=== PATIENT | female | born 1980 | race Caucasian/White ===

== ENCOUNTER 2018-05-25 18:49 | Emergency (ER) | payer MEDICAID ==
[~2018-05-25] VITALS: Ht 152.4 cm; Wt 73.0 kg
[2018-05-25 19:12] VITALS: Ht 152.4 cm; Wt 73.0 kg
[2018-05-25 22:44] VITALS: BP 120/71
== END 2018-05-25 22:44 | disposition home or self-care (01) ==
LOC: ED 18:49
DX: R51 Headache (principal); R11.2 Nausea with vomiting, unspecified; Z90.49 Acquired absence of other specified parts of digestive tract; Z98.890 Other specified postprocedural states
CPT/HCPCS: J1885; Q0162

== ENCOUNTER 2018-06-14 21:24 | Emergency (ER) | payer MEDICAID ==
[~2018-06-14] VITALS: Ht 157.5 cm; Wt 68.0 kg
[2018-06-14 21:34] VITALS: Ht 157.5 cm; Wt 68.0 kg
[2018-06-14 23:51] VITALS: BP 125/70
== END 2018-06-14 23:51 | disposition home or self-care (01) ==
LOC: ED 21:24
DX: J02.9 Acute pharyngitis, unspecified (principal); K29.70 Gastritis, unspecified, without bleeding; Z90.49 Acquired absence of other specified parts of digestive tract
CPT/HCPCS: J1885; Q0162

== ENCOUNTER 2018-08-23 21:53 | Emergency (ER) | payer MEDICAID ==
[~2018-08-23] VITALS: Ht 149.9 cm; Wt 73.0 kg
[2018-08-23 21:57] VITALS: BP 134/82; Ht 149.9 cm; Wt 73.0 kg
== END 2018-08-24 01:30 | disposition home or self-care (01) ==
LOC: ED 21:53
DX: S46.911A Strain of unspecified muscle, fascia and tendon at shoulder and upper arm level, right arm, initial encounter (principal); M54.12 Radiculopathy, cervical region; Z98.890 Other specified postprocedural states; Z90.49 Acquired absence of other specified parts of digestive tract; X58.XXXA Exposure to other specified factors, initial encounter; Y93.89 Activity, other specified; Y92.89 Other specified places as the place of occurrence of the external cause; Y99.8 Other external cause status
CPT/HCPCS: J1885

== ENCOUNTER 2019-07-11 15:50 | Emergency (ER) | payer MEDICAID ==
[~2019-07-11] VITALS: Ht 149.9 cm; Wt 75.7 kg
[2019-07-11 15:58] VITALS: BP 127/74; Ht 149.9 cm; Wt 75.7 kg
== END 2019-07-11 18:47 | disposition home or self-care (01) ==
LOC: ED 15:50
DX: G44.209 Tension-type headache, unspecified, not intractable (principal); Z90.49 Acquired absence of other specified parts of digestive tract; Z98.890 Other specified postprocedural states
CPT/HCPCS: J0780; J1885; Q0162; Q0163

== ENCOUNTER 2019-10-16 14:18 | Emergency (ER) | payer MEDICAID ==
[2019-10-16 14:25] VITALS: BP 115/62
== END 2019-10-16 15:20 | disposition home or self-care (01) ==
LOC: ED 14:18
DX: L57.8 Other skin changes due to chronic exposure to nonionizing radiation (principal); Z98.890 Other specified postprocedural states; Z90.49 Acquired absence of other specified parts of digestive tract
CPT/HCPCS: J7512; Q0163